=== PATIENT | male | born 1960 | race Caucasian/White ===

== ENCOUNTER 2017-01-15 09:04 | Emergency (ER) | payer BC ==
[~2017-01-15] VITALS: Ht 172.7 cm; Wt 75.3 kg
[~2017-01-15 09:04] MED LIST: ASCORBIC ACID500 M3 PO; ATIVAN0.5 MG PO; ATROPINE 1100 DROP/5 LEFT EYE; CENTRUM SILVER1 EAC3 PO; NIACIN 500 MG1 EACH PO; NOHOMEMEDS; OSTEO BI-FLEX1 EAC3 PO; PERCOCET 5/31 TABLET PO; POLYTRIM EYE DR10 ML LEFT EYE; PRED FORTE100 DROP/5 LEFT EYE; SERTRALINE HCL50 MG PO
[2017-01-15 09:53] LABS: BASOPHIL COUNT 0.1 K/uL (0-0.1); EOSINOPHIL (%) 1.8 % (0-5); EOSINOPHIL COUNT 0.1 K/uL (0-0.3); HEMATOCRIT 45.9 % (38.0-50.0); IMMATURE GRANULOCYTE (%) 0.3 % (0.0-0.7); INSTRUMENT ABS NEUTROPHIL CT 4.4 K/uL; LYMPHOCYTE COUNT 1.4 K/uL (1.0-2.8); MCH 26.6 PG (29.0-34.0); MCV 83.2 FL (86-99); MEAN PLAT.VOLUME 9.4 uM^3 (9.0-12.4); MONOCYTE (%) 7.9 % (3-12); MONOCYTE COUNT 0.5 K/uL (0-0.8); NEUTROPHIL COUNT 4.4 K/uL (1.8-6.4); PLATELET COUNT 361 K/uL (156-360); RBC DIS.WIDTH-CV 13.8 % (11.8-14.6); RBC DIS.WIDTH-SD 42.2 % (39-53); RED BLOOD COUNT 5.52 M/uL (4.00-5.50); WHITE BLOOD COUNT 6.6 K/uL (4.1-10.2)
[2017-01-15 10:07] LABS: CHLORIDE 104 mEq/L (99-109); SODIUM 138 mEq/L (136-147)
[2017-01-15 10:09] LABS: GLUCOSE 183 mg/dL (70-99)
[2017-01-15 10:11] LABS: ANION GAP 13 MEQ/L (2-14)
[2017-01-15 10:20] LABS: ALKALINE PHOSPHATASE 80 IU/L (3-129); GFR ESTIMATE (CALCULATED) > 59 mL/min/; TOTAL BILIRUBIN 0.5 mg/dL (0.0-1.0); UREA NITROGEN (BUN) 14 mg/dL (9-23)
[2017-01-15] MEDS ORDERED: DOXYCYCLINE HY100 MG PO (10:48)
[2017-01-15] MEDS ORDERED: ZOFRAN ODT4 MG PO (10:48)
[2017-01-15] MEDS ORDERED: PREDNISONE20 MG PO (10:48)
[2017-01-15] MEDS ORDERED: VALTREX1000 MG PO (10:48)
[2017-01-15] MEDS ORDERED: ULTRAM50 MG PO (11:00)
[2017-01-15 11:10] VITALS: BP 130/88
[2017-01-15 13:27] LABS: LYME DISEASE SEROLOGY SCREEN POSITIVE (NEGATIVE)
== END 2017-01-15 11:10 | disposition home or self-care (01) ==
LOC: EME 09:04
PROVIDERS: Emergency Medicine
DX: G51.0 Bell's palsy (principal); A69.20 Lyme disease, unspecified; I10 Essential (primary) hypertension; J45.909 Unspecified asthma, uncomplicated; F41.9 Anxiety disorder, unspecified; F32.9 Major depressive disorder, single episode, unspecified; Z88.0 Allergy status to penicillin
CPT/HCPCS: 70450; 80053; 85025; 86617 90; 86618; 99281; 99285; J2930; J7030